=== PATIENT | female | born 2000 | race Two or more races ===

== ENCOUNTER → 2024-12-01 | Emergency (ER) | payer MEDICAID ==
[~2024-12-01] VITALS: Ht 167.6 cm; Wt 77.1 kg
[~2024-12-01] MED LIST: BENZ-13 PO; IBUP-1490 PO
[2024-12-01 13:57] VITALS: BP 151/82; TEMP 98.4; O2SAT 96
== END | disposition home or self-care (01) ==
LOC: ER 13:17
DX: J06.9 Acute upper respiratory infection, unspecified (principal); Z20.822 Contact with and (suspected) exposure to COVID-19

== ENCOUNTER 2025-01-16 01:41 | Emergency (ER) | payer SELFPAY ==
[~2025-01-16] VITALS: Ht 167.6 cm; Wt 79.4 kg
[2025-01-16 02:46] LABS: PREGNANCY TEST URINE QUAL NEGATIVE (NEGATIVE)
[2025-01-16 02:55] LABS: APPEARANCE,URINE CLEAR (CLEAR); BLOOD, URINE NEGATIVE Ery/uL (NEGATIVE); LEUKOCYTE ESTERASE ,URINE NEGATIVE (NEGATIVE); NITRITE, URINE POSITIVE (NEGATIVE); UGLUCOSE TRACE mg/dL (NEGATIVE)
[2025-01-16 02:56] LABS: ADD URINE CULTURE YES
[2025-01-16] MEDS ORDERED: IBUP-1490 PO (03:42)
[2025-01-16] MEDS ORDERED: CEPH-570 PO (03:42)
[2025-01-16 04:06] VITALS: BP 128/80; TEMP 98.7; O2SAT 99
== END 2025-01-16 04:06 | disposition home or self-care (01) ==
LOC: ER 01:49
DX: N39.0 Urinary tract infection, site not specified (principal); F17.200 Nicotine dependence, unspecified, uncomplicated
CPT/HCPCS: 81001; 84703-TC; 87086-TC